=== PATIENT | male | born 1985 | race Caucasian/White ===

== ENCOUNTER 2024-03-30 23:27 | Emergency (ER) | payer SELFPAY ==
[2024-03-30 23:36] VITALS: BP 148/88; PULSE 88; RESP 18; TEMP 36.4; O2SAT 97
--- NOTE | 2024-03-30 23:38 | PC.NURSE ---
Pt states his daughter is on staff at another hospitl and told him to go there insetad. Pt left without being see by provider here.
== END 2024-03-30 23:38 | disposition left against medical advice (07) ==
DX: Z53.21 Procedure and treatment not carried out due to patient leaving prior to being seen by health care provider (principal)
CPT/HCPCS: 99199